=== PATIENT | male | born 1935 | race African-American/Black ===

== ENCOUNTER 2018-06-29 12:38 | Inpatient (IN) | payer BC ==
[~2018-06-29] VITALS: Ht 177.8 cm; Wt 77.6 kg
[2018-06-29] MEDS ORDERED: ASPIRIN 81MG TABLET PO ONE (13:00)
[2018-06-29 13:01] LABS: BASOPHILS % 0.7 % (0.0-2.0); EOSINOPHILS % 2.8 % (0.0-5.0); HEMATOCRIT. 39.6 % (42.0-52.0); HEMOGLOBIN. 13.4 g/dL (14.0-18.0); LYMPHOCYTES % 27.4 % (20.0-50.0); MEAN CORPUSCULAR HEMOGLOBIN 31.2 pg (28.0-32.0); MONOCYTES % 13.1 % (2.0-8.0)
[2018-06-29 13:07] LABS: CHLORIDE 108 mEq/L (98-107)
[2018-06-29 13:11] LABS: PROTHROMBIN TIME 10.4 sec (9.1-11.1)
[2018-06-29 13:13] LABS: ETHANOL BLOOD < 10 mg/dL
[2018-06-29 13:16] LABS: LDL CHOLESTEROL 63 mg/dL (5-100)
[2018-06-29] MEDS ORDERED: LATA2.5D2 EACHEYE (14:12)
[2018-06-29] MEDS ORDERED: SITA100T11 PO (14:12)
[2018-06-29] MEDS ORDERED: PROP10DR2 EACHEYE (14:12)
[2018-06-29] MEDS ORDERED: LOSA100T14 MT (14:12)
[2018-06-29] MEDS ORDERED: ROSU10TA25 PO (14:12)
[2018-06-29] MEDS ORDERED: TAMS0.4C31 PO (14:12)
[2018-06-29] MEDS ORDERED: AMLO10TA4 MT (14:12)
[2018-06-29] MEDS ORDERED: ACETAMINOPHEN 325MG TABLET PO PRN (15:00)
[2018-06-29] MEDS ORDERED: DIPHENHYDRAMINE 50MG/ML VIAL IV PRN (15:00)
[2018-06-29] MEDS ORDERED: GUAIFENESIN 200MG/10ML SUGAR FREE UDC PO PRN (15:00)
[2018-06-29] MEDS ORDERED: CLONIDINE 0.1MG TABLET PO PRN (15:00)
[2018-06-29] MEDS ORDERED: DOCUSATE SODIUM 100MG CAPSULE PO PRN (15:00)
[2018-06-29] MEDS ORDERED: NA PHOS,M-B/NA PHOS,DI-BA ENEMA 118ML PR PRN (15:00)
[2018-06-29] MEDS ORDERED: LORAZEPAM 2MG/ML CPJ IV PRN (15:00)
[2018-06-29] MEDS ORDERED: IPRATROPIUM/ALBUTEROL 0.5-3(2.5)MG/3ML NEB INH PRN (15:00)
[2018-06-29] MEDS ORDERED: HYDROMORPHONE HCL/PF 2MG/ML CPJ IV PRN (15:00)
[2018-06-29] MEDS ORDERED: MAGNESIUM/ALUMINUM HYDROXIDE/SIMETHICONE 30ML UDC PO PRN (15:00)
[2018-06-29] MEDS ORDERED: ONDANSETRON HCL 4MG/2ML INJ IV PRN (15:00)
[2018-06-29] MEDS ORDERED: HYDROCODONE/ACETAMINOPHEN 5/325MG TABLET PO PRN (15:00)
[2018-06-29 16:00] VITALS: BP 126/63
[2018-06-29 16:41] VITALS: BP 126/63
[2018-06-29] MEDS ORDERED: SODIUM CHLORIDE 0.45% 1,000 ML IV SCH (17:00)
[2018-06-29] MEDS ORDERED: ENOXAPARIN 40MG/0.4ML SYR SUBCUT SCH (17:00)
[2018-06-29 20:19] VITALS: BP 160/90
[2018-06-30] VITALS: BP 133/70
[2018-06-30 00:18] LABS: CHLORIDE 107 mEq/L (98-107)
[2018-06-30 04:00] VITALS: BP 143/71
[2018-06-30 06:36] LABS: BASOPHILS % 0.5 % (0.0-2.0); EOSINOPHILS % 4.5 % (0.0-5.0); HEMATOCRIT. 37.1 % (42.0-52.0); HEMOGLOBIN. 12.7 g/dL (14.0-18.0); LYMPHOCYTES % 30.2 % (20.0-50.0); MEAN CORPUSCULAR HEMOGLOBIN 31.6 pg (28.0-32.0); MEAN CORPUSCULAR VOLUME 92.2 fL (80.0-94.0); MONOCYTES % 14.5 % (2.0-8.0); NEUTROPHILS % 50.3 % (40.0-76.0); PLATELET 104 x1000/uL (130-400); RED BLOOD CELL COUNT 4.02 mill/uL (4.7-6.1); RED CELL DISTRIBUTION WIDTH 14.2 % (11.6-14.6)
[2018-06-30 07:06] LABS: CHLORIDE 109 mEq/L (98-107)
[2018-06-30 07:37] LABS: LDL CHOLESTEROL 56 mg/dL (5-100)
[2018-06-30 07:38] LABS: HDL CHOLESTEROL 66 mg/dL (40-59)
[2018-06-30 07:39] LABS: T4 FREE 1.18 ng/dL (0.76-1.46)
[2018-06-30 08:00] VITALS: BP 95/68
[2018-06-30] MEDS ORDERED: ASPIRIN 81MG EC TABLET PO SCH (09:00)
[2018-06-30 11:42] VITALS: BP 137/65
[2018-06-30 14:00] VITALS: BP 126/63
[2018-06-30 16:27] VITALS: BP 137/65
== END 2018-06-30 19:48 | disposition home or self-care (01) | DRG 64 ==
LOC: ER 12:38 → 7WST 14:04 → EDBEDREQ 14:09 → EDBEDREQSVC 14:09 → ENRESERV 15:19
PROVIDERS: ADMIT Internal Medicine; ATTEND Internal Medicine
DX: I63.9 Cerebral infarction, unspecified (principal); G93.41 Metabolic encephalopathy; D69.6 Thrombocytopenia, unspecified; E11.9 Type 2 diabetes mellitus without complications; E78.00 Pure hypercholesterolemia, unspecified; I49.1 Atrial premature depolarization; E86.0 Dehydration; I10 Essential (primary) hypertension; R47.1 Dysarthria and anarthria; R29.810 Facial weakness; G83.24 Monoplegia of upper limb affecting left nondominant side; I83.93 Asymptomatic varicose veins of bilateral lower extremities; N40.0 Benign prostatic hyperplasia without lower urinary tract symptoms; Z79.84 Long term (current) use of oral hypoglycemic drugs; Z91.81 History of falling; Z79.899 Other long term (current) drug therapy
CPT/HCPCS: 36415; 70551; 71045; 71100; 80048; 80061; 83721; 84439; 84443; 84484; 93005; 93880; 97162; 99285; G0482; J1650